=== PATIENT | male | born 1965 | race Caucasian/White ===

== ENCOUNTER → 2024-09-06 | Outpatient (CLI) | payer BC, SELFPAY ==
[2024-09-06 09:30] LABS: Basophils % (Auto) 0 % (0-2.5); Eosinophils # (Auto) 0.1 Thou/mm3 (0.0-0.5); Eosinophils % (Auto) 2 % (0-10); Hematocrit 43.2 % (41.0-53.0); Hemoglobin 15.1 g/dL (13.5-16.0); Immature Granulocytes % (Auto) 1 % (0-0); Immature Granulocytes Auto 0.02 Thou/mm3 (0.00-0.00); Lymphocytes # (Auto) 1.2 Thou/mm3 (1.0-4.8); Lymphocytes % (Auto) 34 % (10-50); Mean Corpuscular Hemoglobin 32.1 pg (25.0-35.0); Mean Corpuscular Volume 92 fL (80-100); Monocytes # (Auto) 0.4 Thou/mm3 (0.0-0.8); Monocytes % (Auto) 11 % (0-12); Neutrophils # (Auto) 1.8 Thou/mm3 (1.8-7.7); Neutrophils % (Auto) 52 % (37-80); Nucleated Red Blood Cell % 0 /100 WBC (0); Platelet Count 134 Thou/mm3 (140-440); RDW Standard Deviation 38.7 fL (35.1-43.9); Red Blood Count 4.71 Miln/mm3 (4.50-5.90); White Blood Count 3.5 Thou/mm3 (3.8-10.6)
[2024-09-06 09:34] LABS: Partial Thromboplastin Time 24.8 Seconds (22.0-36.0); Prothrombin Time 11.4 Seconds (9.0-12.2)
== END | disposition home or self-care (01) ==
LOC: COPL 08:31
PROVIDERS: PCP Internal Medicine; Referring Provider Specialist; Visit Provider Specialist
DX: Z01.812 Encounter for preprocedural laboratory examination (principal)
CPT/HCPCS: 36415; 85025; 85610; 85730

== ENCOUNTER → 2024-10-03 | Outpatient (CLI) | payer BC, SELFPAY ==
[2024-10-03 10:07] LABS: Collection Type, Urine Clean Catch; Squamous Epithelial Cell,Urine 0 /hpf (0-5)
[2024-10-03 10:36] LABS: Bilirubin,Urine Negative (Negative); Blood,Urine Negative (Negative); Clarity,Urine Clear (Clear/Hazy); Color,Urine Lt-Yellow (Lt Yel-Yel); Glucose, Urine Negative (Negative); Ketones,Urine Negative (Negative); Leukocyte Esterase,Urine Negative (Negative); Nitrite,Urine Negative (Negative); Protein,Urine Negative (Neg - Trace); RBC,Urine 5 /hpf (0-3); Urobilinogen,Urine Negative mg/dL (0.0-1.0); WBC,Urine 1 /hpf (0-5)
[2024-10-03 10:38] LABS: Basophils % (Auto) 0 % (0-2.5); Eosinophils # (Auto) 0.1 Thou/mm3 (0.0-0.5); Eosinophils % (Auto) 2 % (0-10); Hematocrit 41.9 % (41.0-53.0); Hemoglobin 14.4 g/dL (13.5-16.0); Immature Granulocytes % (Auto) 1 % (0-0); Immature Granulocytes Auto 0.02 Thou/mm3 (0.00-0.00); Lymphocytes % (Auto) 35 % (10-50); Mean Corpuscular HGB Conc 34.4 g/dl (31.0-37.0); Mean Corpuscular Hemoglobin 31.9 pg (25.0-35.0); Mean Corpuscular Volume 93 fL (80-100); Monocytes # (Auto) 0.4 Thou/mm3 (0.0-0.8); Monocytes % (Auto) 13 % (0-12); Neutrophils # (Auto) 1.5 Thou/mm3 (1.8-7.7); Neutrophils % (Auto) 50 % (37-80); Nucleated Red Blood Cell % 0 /100 WBC (0); Platelet Count 152 Thou/mm3 (140-440); RDW Standard Deviation 40.2 fL (35.1-43.9); Red Blood Count 4.51 Miln/mm3 (4.50-5.90)
[2024-10-03 10:44] LABS: Glucose Estimated Average 108 mg/dL (80-131); Hemoglobin A1C 5.4 % Hgb (4.8-6.0)
[2024-10-03 10:48] LABS: Prostate Specific Antigen 10.77 ng/mL (0-4.00)
[2024-10-03 10:57] LABS: White Blood Count 2.9 Thou/mm3 (3.8-10.6)
[2024-10-03 11:06] LABS: Alanine Aminotransferase 21 U/L (10-49); Albumin, Serum 4.7 gm/dL (3.4-4.8); Alkaline Phosphatase 56 U/L (46-116); Anion Gap 7 (7-16); Aspartate Amino Transferase 15 U/L (0-34); BUN/Creatinine Ratio 14 Ratio (12-20); Bilirubin,Total 0.6 mg/dL (0.3-1.2); Blood Urea Nitrogen 15 mg/dL (9-23); Calcium 9.8 mg/dL (8.3-10.6); Calcium (Corrected) 9.8 mg/dL (8.5-10.1); Carbon Dioxide 29.2 mMol/L (20.0-31.0); Cardiac Risk Estimate 3.3 RATIO (4.0-6.7); Chloride 103 mMol/L (98-107); Cholesterol 195 mg/dL (132-200); Creatinine (Component) 1.1 mg/dL (0.6-1.3); Globulin 2.3 gm/dL (2.3-3.5); Glucose 99 mg/dL (74-106); HDL Cholesterol 60 mg/dL (40-60); LDL Cholesterol,Calculated 122 mg/dL (0-130); Osmolality,Calculated 278 (275-295); Potassium 4.8 mMol/L (3.4-5.1); Sodium 139 mMol/L (136-145); Thyroid Stimulating Hormone 1.87 uIU/mL (0.55-4.78); Triglycerides 64 mg/dL (30-150); eGFR > 60 See Note
== END | disposition home or self-care (01) ==
LOC: COPL 09:34
PROVIDERS: PCP Internal Medicine; Referring Provider Internal Medicine; Visit Provider Internal Medicine
DX: Z00.00 Encounter for general adult medical examination without abnormal findings (principal); I10 Essential (primary) hypertension
CPT/HCPCS: 36415; 80053; 80061; 81001; 83036; 84153; 84443; 85025

== ENCOUNTER → 2024-10-30 | Outpatient (CLI) | payer BC, SELFPAY ==
[2024-10-30 10:12] LABS: Prostate Specific Antigen 4.21 ng/mL (0-4.00)
== END | disposition home or self-care (01) ==
LOC: COPL 08:35
PROVIDERS: PCP Internal Medicine; Referring Provider Urology; Visit Provider Urology
DX: R97.20 Elevated prostate specific antigen [PSA] (principal)
CPT/HCPCS: 36415; 84153

== ENCOUNTER → 2024-11-05 | Outpatient (BNVA) | payer BC, SELFPAY | END | disposition home or self-care (01) | PROVIDERS: PCP Internal Medicine; Referring Provider Internal Medicine; Visit Provider Urology | DX: N40.1 Benign prostatic hyperplasia with lower urinary tract symptoms (principal); N13.8 Other obstructive and reflux uropathy; R97.20 Elevated prostate specific antigen [PSA]; I10 Essential (primary) hypertension; K21.9 Gastro-esophageal reflux disease without esophagitis | CPT/HCPCS: 81003; 99212; G0463 ==

== ENCOUNTER → 2025-02-13 | Outpatient (CLI) | payer BC, SELFPAY ==
[2025-02-12 09:33] LABS: Basophils % (Auto) 0 % (0-2.5); Eosinophils % (Auto) 1 % (0-10); Hematocrit 41.2 % (41.0-53.0); Hemoglobin 14.1 g/dL (13.5-16.0); Immature Granulocytes % (Auto) 0 % (0-0); Immature Granulocytes Auto 0.01 Thou/mm3 (0.00-0.00); Lymphocytes % (Auto) 35 % (10-50); Mean Corpuscular HGB Conc 34.2 g/dl (31.0-37.0); Mean Corpuscular Volume 91 fL (80-100); Monocytes # (Auto) 0.3 Thou/mm3 (0.0-0.8); Monocytes % (Auto) 12 % (0-12); Neutrophils # (Auto) 1.4 Thou/mm3 (1.8-7.7); Neutrophils % (Auto) 51 % (37-80); Nucleated Red Blood Cell % 0 /100 WBC (0); Platelet Count 124 Thou/mm3 (140-440); RDW Standard Deviation 39.4 fL (35.1-43.9); Red Blood Count 4.55 Miln/mm3 (4.50-5.90)
[2025-02-12 09:41] LABS: Partial Thromboplastin Time 25.4 Seconds (22.0-36.0); Prothrombin Time 11.3 Seconds (9.0-12.2)
[2025-02-12 09:46] LABS: White Blood Count 2.8 Thou/mm3 (3.8-10.6)
--- NOTE | 2025-02-13 | XR_ITS ---
Examination: AP chest single view Technique one AP upright portable chest single view Exam date and time: February 13, 2025 11:12 AM INDICATIONS: Post liver biopsy. FINDINGS: No pneumothorax. Normal heart size The osseous structures are intact IMPRESSION: Negative for pneumothorax
--- NOTE | 2025-02-13 09:30 | XR_ITS ---
Examination: Ultrasound-guided percutaneous liver biopsy Ultrasound abdomen limited Exam date and time: 02/13/2025 1032 hours. INDICATIONS: Elevated liver function tests on laboratory examination this month Informed consent provided. Technique: A timeout was completed, verifying correct patient, procedure, site, positioning, and special equipment if applicable. The patient was placed in supine position for right lobe liver biopsy. The patient's skin was prepped and draped in sterile fashion. Maximum sterile barrier technique, hand hygiene, ultrasound sterile technique 1% lidocaine was used to anesthetize the skin and subcutaneous tissues. Ultrasound was utilized for two 18-gauge core liver biopsies, utilizing a BioPince needle. Specimens appear adequate. Estimated blood loss 0 cc. The patient tolerated the procedure well and there were no complications. Impression: Successful ultrasound-guided percutaneous liver biopsy.
[2025-02-13 11:00] VITALS: BP 179/97; PULSE 56; RESP 13; TEMP 36.7; O2SAT 98
[2025-02-13 11:15] VITALS: BP 176/96; PULSE 60; RESP 18; O2SAT 98
[2025-02-13 11:30] VITALS: BP 185/96; PULSE 56; RESP 16; O2SAT 97
[2025-02-13 11:45] VITALS: BP 157/101; PULSE 64; RESP 19; O2SAT 97
--- NOTE | 2025-02-13 11:45 | PC.NURSE ---
Patient ok to go home per Dr. Hearn
== END | disposition home or self-care (01) ==
PROVIDERS: Radiology Diagnostic Radiology; PCP Internal Medicine; Referring Provider Specialist; Visit Provider Specialist
DX: N28.89 Other specified disorders of kidney and ureter (principal); K75.81 Nonalcoholic steatohepatitis (NASH); Z01.812 Encounter for preprocedural laboratory examination
CPT/HCPCS: 47000; 36415; 85025; 85610; 85730

== ENCOUNTER → 2025-02-19 | Outpatient (BNVA) | payer BC, SELFPAY | END | disposition home or self-care (01) | PROVIDERS: PCP Internal Medicine; Referring Provider Internal Medicine; Visit Provider Physician Assistant | DX: N40.1 Benign prostatic hyperplasia with lower urinary tract symptoms (principal); R97.20 Elevated prostate specific antigen [PSA]; I10 Essential (primary) hypertension; K21.9 Gastro-esophageal reflux disease without esophagitis | CPT/HCPCS: Q3014 ==

== ENCOUNTER → 2025-03-26 | Outpatient (CLI) | payer BC, SELFPAY ==
[2025-03-30 17:47] LABS: PSA, Free 0.34 ng/mL; PSA, Total 2.4 ng/mL (< OR = 4.0)
== END | disposition home or self-care (01) ==
LOC: COPL 09:33
PROVIDERS: PCP Internal Medicine; Referring Provider Physician Assistant; Visit Provider Physician Assistant
DX: R97.20 Elevated prostate specific antigen [PSA] (principal)
CPT/HCPCS: 36415; 84153; 84154